=== PATIENT | female | born 1950 | race Caucasian/White ===

== ENCOUNTER → 2017-02-27 | Outpatient (CLI) | payer OTHER ==
--- NOTE | 2017-02-27 14:33 | EKG ---
[address] [address] Measurements Intervals [place] Rate: 76 P: 54 IA: 136 QRS: -3 QRSD: 98 T: 57 QT: 407 QTc: 437 Interpretive Statements SINUS RHYTHM No previous ECG available for comparison Electronically Signed On 02-28-17 10:27:52 MDT by Jaziel Snyder [id number]
== END ==
LOC: MOB EKG 11:54
PROVIDERS: ATTEND Nurse Practitioner Family
DX: R01.1 Cardiac murmur, unspecified (principal); R94.6 Abnormal results of thyroid function studies; R76.8 Other specified abnormal immunological findings in serum
CPT/HCPCS: 36415; 84443; 84550; 85652; 86038; 86431; 93005; 93010

== ENCOUNTER → 2017-03-04 | Outpatient (CLI) | payer OTHER ==
--- NOTE | 2017-03-04 15:09 | EKG ---
[address] [address] Measurements Intervals [place] Rate: 83 P: 50 [place]: 152 QRS: -7 QRSD: 94 T: 34 QT: 396 QTc: 435 Interpretive Statements SINUS RHYTHM Compared to ECG 10/13/2009 00:06:42 No significant changes Electronically Signed On 03-05-17 07:49:27 MDT by Wild Richmond MD [email or web address]
== END ==
LOC: MOB EKG 13:49
PROVIDERS: ATTEND Specialist
DX: R00.2 Palpitations (principal)
CPT/HCPCS: 93005; 93010